=== PATIENT | female | born 1990 | race Caucasian/White ===

== ENCOUNTER 2024-12-07 19:49 | Emergency (ER) | payer MEDICAID, SELFPAY ==
[~2024-12-07] VITALS: Ht 160 cm; Wt 64.8 kg
[2024-12-07 19:54] VITALS: BP 122/69; TEMP 97.2; O2SAT 98
[2024-12-07 22:25] LABS: BASO # 0.1 10^3/uL (0.0-0.2); BASO % 0.6 % (0.0-1.0); EOS # 0.1 10^3/uL (0.0-0.5); HEMATOCRIT 42.2 % (36.0-47.0); HEMOGLOBIN 13.8 g/dl (12.0-15.5); LYMPH # 2.8 10^3/uL (1.5-5.0); LYMPH % 31.4 % (24.0-44.0); MEAN CORPUSCULAR HEMOGLOBIN 29.4 pg (27.0-33.0); MEAN CORPUSCULAR HGB CONC 32.7 g/dl (32.0-36.5); MEAN CORPUSCULAR VOLUME 89.8 fl (80.0-96.0); MONO # 0.8 10^3/uL (0.0-0.8); MONO % 8.4 % (2.0-8.0); NEUTROPHILS # 5.2 10^3/uL (1.5-8.5); NEUTROPHILS % 58.5 % (36.0-66.0); PLATELET COUNT, AUTOMATED 193 10^3/uL (150-450); WHITE BLOOD COUNT 8.9 10^3/uL (4.0-10.0)
== END 2024-12-08 00:48 | disposition home or self-care (01) ==
LOC: M ED 19:49
DX: K64.1 Second degree hemorrhoids (principal)